=== PATIENT | female | born 1995 | race Caucasian/White ===

== ENCOUNTER 2017-09-19 09:36 | Emergency (ER) | payer OTHER ==
--- NOTE | 2017-09-19 11:24 | ED ---
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 She did have some flulike symptoms a couple days ago was worried about toxic shock she currently feels better she has no nausea vomiting fevers chills sweats or other symptoms no vaginal bleeding or vaginal discharges per se. No dysuria hematuria Last Menstrual Period: 09/14/17 - Related Data Allergies Allergy/AdvReac Type Severity Reaction Status Date / Time acetaminophen Allergy Unknown Verified 09/19/17 09:41 [From Tylenol-Codeine #3] clindamycin Allergy Unknown Verified 09/19/17 09:41 codeine Allergy Unknown Verified 09/19/17 09:41 [From Tylenol-Codeine #3] Review of Systems ROS Statement: Those systems with pertinent positive or pertinent negative responses have been documented in the HPI. ROS Other: All systems not noted in ROS Statement are negative. Past Medical History Past Medical History: No Reported History History of Any Multi-Drug Resistant Organisms: None Reported Past Surgical History: Appendectomy, Section Additional Past Surgical History / Comment(s): dnc, follopian tube Past Psychological History: ADD/ADHD, Anxiety, Depression Smoking Status: Current every day smoker Past Alcohol Use History: None Reported Past Drug Use History: Prescription Drug Abuse General Exam - General Exam Comments Initial Comments: This is a well-developed well-nourished awake alert oriented 3 female Limitations: no limitations General appearance: alert, in no apparent distress Head exam: Present: atraumatic, normocephalic, normal inspection Eye exam: Present: normal appearance, PERRL, EOMI. Absent: scleral icterus, conjunctival injection, periorbital swelling ENT exam: Present: normal exam, mucous membranes moist Neck exam: Present: normal inspection. Absent: tenderness, meningismus, lymphadenopathy Respiratory exam: Present: normal lung sounds bilaterally. Absent: respiratory distress, wheezes, rales, rhonchi, stridor Cardiovascular Exam: Present: regular rate, normal rhythm, normal heart sounds. Absent: systolic murmur, diastolic murmur, rubs, gallop, clicks GI/Abdominal exam: Present: soft, normal bowel sounds. Absent: distended, tenderness, guarding, rebound, rigid Rectal exam: Present: normal inspection External exam: Present: other (Examination of the vaginal vault and cervix done with a female nurse present at all times, Dayanara, revealed several small pieces of residual tampon and periphery adjacent to the cervix. No active bleeding; crit discharge noted. No cervical motion tenderness. No bleeding the color of the mucous membrane appears be within normal limits. I was able to remove several small pieces a residual matter using a sterile Q-tip. He did tolerate this well. Bimanual exam afterwards revealed no retained products no masses no CMT.) Extremities exam: Present: normal inspection, full ROM, normal capillary refill. Absent: tenderness, pedal edema, joint swelling, calf tenderness Back exam: Present: normal inspection Neurological exam: Present: alert, oriented X3, CN II-XII intact Psychiatric exam: Present: normal affect, normal mood Skin exam: Present: warm, dry, intact, normal color. Absent: rash Course Vital Signs 09/19/17 09:41 Temperature 97.7 F Pulse Rate 101 H Respiratory 17 Rate Blood Pressure 133/71 O2 Sat by Pulse 96 Oximetry Medical Decision Making - Medical Decision Making No further workup is indicated patient will be discharged Disposition Clinical Impression: Retained vaginal foreign body Disposition: HOME SELF-CARE Condition: Good Instructions: Vaginal Foreign Body (ED) Referrals: None,Stated [Primary Care Provider] - 1-2 days
[2017-09-19 12:06] VITALS: BP 122/76; PULSE 90; RESP 16; TEMP 98
== END 2017-09-19 11:55 | disposition home or self-care (01) ==
LOC: EC 09:36
DX: T19.2XXA Foreign body in vulva and vagina, initial encounter (principal); F17.200 Nicotine dependence, unspecified, uncomplicated; Z88.5 Allergy status to narcotic agent; Z88.6 Allergy status to analgesic agent; Z88.1 Allergy status to other antibiotic agents
CPT/HCPCS: 99283